=== PATIENT | male | born 1990 | race Caucasian/White ===

== ENCOUNTER 2016-12-18 19:55 | Emergency (ER) | payer BC ==
--- NOTE | 2016-12-18 22:05 | ED ---
Lower Extremity - HPI Summary HPI Summary: 26M presents with left knee pain for today. He was on a long board and accidentally turned his knee. He states that his other knee came over the top and pushed on his left knee. He denies any popping or locking. He has been able to ambulate. He has full ROM of his knee. He states that it just feels unstable. He states he dislocated his knee many years ago. He denies any numbness or tingling. He took ibuprofen for pain. - History of Current Complaint Chief Complaint: EDExtremityLower Stated Complaint: LT KNEE INJURY Time Seen by Provider: 12/18/16 21:17 Pain Intensity: 6 - Allergies/Home Medications Allergies/Adverse Reactions: Allergies Allergy/AdvReac Type Severity Reaction Status Date / Time No Known Allergies Allergy Verified 12/18/16 20:11 PMH/Surg Hx/FS Hx/Imm Hx Endocrine/Hematology History: Denies: Hx Anticoagulant Therapy Cardiovascular History: Denies: Hx Hypertension Infectious Disease History: No Infectious Disease History: Denies: Traveled Outside the [place] in Last 30 Days - Family History Known Family History: Negative: Cardiac Disease - Social History Alcohol Use: Occasionally Substance Use Type: Reports: None Smoking Status (MU): Unknown if Ever Smoked Review of Systems Negative: Fever Negative: Chest Pain Negative: Shortness Of Breath Positive: Myalgia - left knee All Other Systems Reviewed And Are Negative: Yes Physical Exam Triage Information Reviewed: Yes Vital Signs On Initial Exam: Initial Vitals Temp Pulse Resp BP Pulse Ox 98.1 F 101 16 131/68 98 12/18/16 20:08 12/18/16 20:08 12/18/16 20:08 12/18/16 20:08 12/18/16 20:08 Vital Signs Reviewed: Yes Appearance: Positive: Well-Appearing Skin: Positive: Warm, Dry Head/Face: Positive: Normal Head/Face Inspection Eyes: Positive: Normal, EOMI, [place], Conjunctiva Clear ENT: Positive: Normal ENT inspection, Pharynx normal, TMs normal Respiratory/Lung Sounds: Positive: Clear to Auscultation, Breath Sounds Present Cardiovascular: Positive: Normal, RRR Musculoskeletal: Positive: Strength/ROM Intact - left knee, Edema Left - mild, Other - good pulses, capillary refill<2 secs, tenderness over left knee, sensation grossly intact Diagnostics - Vital Signs Vital Signs Temp Pulse Resp BP Pulse Ox 12/18/16 20:11 98.1 F 105 16 131/68 100 12/18/16 20:08 98.1 F 101 16 131/68 98 - Laboratory Lab Statement: Any lab studies that have been ordered have been reviewed, and results considered in the medical decision making process. - Radiology knee Xray Interpretation: Positive (See Comments) - IMPRESSION: 1. LIPOHEMARTHROSIS. 2. NONDISPLACED TIBIAL PLATEAU FRACTURE, CONSIDER CT IMAGING FOR FURTHER EVALUATION. Radiology Interpretation Completed By: Radiologist Lower Extremity Course/Dx - Course Course Of Treatment: 26M presents with left knee pain for today. He was on a long board and accidentally turned his knee. He states that his other knee came over the top and pushed on his left knee. He denies any popping or locking. He has been able to ambulate. He has full ROM of his knee. He states that it just feels unstable. He states he dislocated his knee many years ago. He denies any numbness or tingling. on exam neurovascular intact. tenderness over knee. xray shows tibial plateau fx. confirmed with dr triplett can place in duncan or knee imbolizer with crutches and follow up with ortho. patient understands and agrees with plan. - Diagnoses Differential Diagnosis/HQI/PQRI: Positive: Fracture (Closed), Sprain, Strain Provider Diagnoses: Fracture of left tibial plateau - Physician Notifications Discussed Care Of Patient With: dr triplett Time Discussed With Above Provider: 22:30 - place in duncan or knee imbolizer, make not weight bearing, follow up tomorrow or thursday Discharge - Discharge Plan Condition: Good Disposition: HOME Prescriptions: oxyCODONE/Acetamin 5/325 MG* [Percocet 5/325 TAB*] 1 tab PO Q6H PRN #12 tab MDD 4 PRN Reason: Pain Patient Education Materials: Leg Fracture (ED) Referrals: No Primary Care Phys,NOPCP [Primary Care Provider] - Kevin Triplett MD [Medical Doctor] - Additional Instructions: Use crutches and stay nonweight bearing Keep duncan or knee immobilizer on area Call ortho office tomorrow to set up appointment for follow up Use ibuprofen for pain every 6 hours and use narcotic for breakthrough pain Ice, elevate Return to ED if develop numbness or tingling or any new or worsening symptoms
--- NOTE | 2016-12-18 22:06 | RAD ---
INDICATION: Left knee injury. TECHNIQUE: 4 views of the left knee were obtained. FINDINGS: The bones are normal alignment. There is a fracture of the tibial plateau through the region of the tibial spines which appears grossly nondisplaced. There is a joint effusion containing a fat fluid level consistent with a lipohemarthrosis. Joint spaces appear maintained. IMPRESSION: 1. LIPOHEMARTHROSIS. 2. NONDISPLACED TIBIAL PLATEAU FRACTURE, CONSIDER CT IMAGING FOR FURTHER EVALUATION.
[2016-12-18] MEDS ORDERED: oxyCODONE/Acetamin 5/325 MG* TAB PO ONE (22:29)
[2016-12-18 23:35] VITALS: BP 155/65
== END 2016-12-18 23:40 | disposition home or self-care (01) ==
LOC: ED 19:55
DX: S82.142A Displaced bicondylar fracture of left tibia, initial encounter for closed fracture (principal); Y92.9 Unspecified place or not applicable; Y93.51 Activity, roller skating (inline) and skateboarding; X50.9XXA Other and unspecified overexertion or strenuous movements or postures, initial encounter; M25.562 Pain in left knee
CPT/HCPCS: 99282; A9270-GY